=== PATIENT | male | born 2000 | race Caucasian/White ===

== ENCOUNTER 2019-02-20 10:00 | Emergency (ER) | payer OTHER, SELFPAY ==
[2019-02-20 10:03] VITALS: BP 121/75; PULSE 78; RESP 16; TEMP 36.5; O2SAT 98; BMI 20.4
--- NOTE | 2019-02-20 10:14 | ED.DCSUM_ITS ---
History of Present Illness Chief Complaint: Dental Informant: Patient Onset: Today Context: Sudden Onset Narrative: Patient is a 18-year-old male with history of Kvng-Danlos syndrome presenting with bleeding from a lip piercing. Patient recently had his top lip pierced when he woke up this morning noticed it was bleeding. He went to student health at [facility] and they were unable to remove it so he came to the emergency room to have it removed. He says it is uncomfortable but he denies any significant pain. He denies any history of any bleeding disorders. He denies any other injuries or complaints at this time. Past Medical History - Allergies and Home Meds Allergies/Adverse Reactions: Allergies No Known Allergies Allergy (Verified 02/20/19 10:02) Primary Care Physician: [facility],Out of [NON-STAFF] - Past Medical History: - - Kvng-Danlos syndrome Surgical History: noncontributory Review of Systems General: Denies: Chills, Fever, Sweats Eyes: Denies: Visual changes - bilaterally, Diplopia ENT: Denies: Rhinorrhea, Sore throat Cardiovascular: Denies: Chest pain, Palpitations Respiratory: Denies: Dyspnea, Cough, Dyspnea on exertion Gastrointestinal: Denies: Abdominal pain, Nausea, Vomiting Genitourinary: Denies: Dysuria, Hematuria, Frequency Musculoskeletal: Reports: Myalgias - Chronic, Arthralgias - Chronic, Back pain, Extremity Pain Skin: Reports: Wounds - Upper lip piercing with bleeding. Denies: Rash Neurological: Denies: Headache, Weakness, Numbness Physical Exam Vital Signs/Narrative: Vital Signs Temp Pulse Resp BP Pulse Ox 02/20/19 10:03 97.7 F L 78 16 121/75 H 98 Inital Vital Signs reviewed: Yes General: Well nourished, Well developed, No Acute Distress Head: Normocephalic, Atraumatic Eyes: Perrl, EOMI ENT: Moist mucous membranes, No rhinorrhea, - - Patient is a piercing through his philtrum that has dried blood around it. No cellulitic changes or purulent drainage associated. Neck: Supple, Nontender Cardiovascular: Regular rate, Regular rhythm, No murmurs Respiratory: No distress, CTA bilaterally Abdomen: Soft, Nontender Skin: Normal color, No rash, Trauma - Piercing through upper lip/philtrum with evidence of recent bleeding Neurological: Alert, Oriented x3 Psychological: Normal affect, Normal Mood Diagnostic/Tx/Re-eval - Medical Decision Making Patient has a lip ring that is bleeding. Is not appear infected. Lip ring is removed. See procedure note. Patient counseled on wound care. Patient is counseled on signs and symptoms requiring return to the emergency room. Patient verbalizes agreement and understand this plan. Patient discharged home in stable and improved condition. Procedures Procedure(s): Foreign body removal. Hemostats used to grasp the base of the lip ring. Second hemostats and used to twist off the top. Once the top was removed the base was pulled through the lip. Patient tolerated procedure well. No obvious complication. No blood loss. ED Disposition - Plan for ED Patient: Disposition: Home or Assisted Living Diagnosis: Open wound of lip Instructions: Wound Care Referrals: [facility],Out of [NON-STAFF] - Additional Instructions: Patient was removed today. Please try to keep the area clean. If desired you can apply bacitracin ointment to the outer piercing. Swish with mouthwash to help prevent infection on the inner lip.
[2019-02-20 10:46] VITALS: PULSE 82; RESP 17; O2SAT 98
== END 2019-02-20 10:52 | disposition home or self-care (01) ==
PROVIDERS: Emergency Provider Emergency Medicine
DX: S01.501A Unspecified open wound of lip, initial encounter (principal); W26.8XXA Contact with other sharp object(s), not elsewhere classified, initial encounter; Y93.9 Activity, unspecified; Y92.9 Unspecified place or not applicable
CPT/HCPCS: 99282

== ENCOUNTER 2019-05-20 12:54 | Emergency (ER) | payer OTHER, SELFPAY ==
[2019-05-20 12:55] VITALS: BP 117/75; PULSE 95; RESP 16; TEMP 36.6; O2SAT 98; BMI 19.0
--- NOTE | 2019-05-20 13:25 | CT_ITS ---
STUDY: CT BRAIN WITHOUT CONTRAST REASON FOR EXAM: Male, 18 years old. Headache, right eye vision changes intermittent x 1 week, legally blind in left eye. RADIATION DOSAGE (If Supplied By Facility): CTDIvol = ( 44.99 ) mGy, DLP = ( 762.36 ) mGycm TECHNIQUE: Transaxial CT imaging of the brain was performed without administration of intravenous contrast material. Individualized dose optimization techniques were used for this CT. COMPARISON: No relevant priors. FINDINGS: Normal soft tissue structures. Normal calvarium. Normal size ventricles and extra-axial spaces for the patient''s age. Normal white matter tracts of the cerebral hemispheres. Normal basal ganglia and thalami. Normal brainstem. Normal cerebellum. There is no intracranial hemorrhage. There are no findings of an acute ischemic infarction. Normal visualized paranasal sinuses. CT/Brain/Head without Contrast IMPRESSION: Normal unenhanced CT scan of the brain. Electronically Signed: Anirudh Madrid, at 13:56 EST , Service support ,
--- NOTE | 2019-05-20 13:33 | ED.DCSUM_ITS ---
- ER Visit Summary Date of Service: 05/20/19 Chief Complaint: Unable to see from right eye History of Present Illness: The patient is a 18 M who is a [employer] student from [place]. Patient has a history of Kvng-Danlos syndrome. He reports he has been able to see from his left eye since he was a child. States that over the past 5 days he has had 3 episodes where he was unable to see from his right eye. The first of these happened 5 days ago. Reports it started as a white spot slightly off center which expanded and overtook his entire vision. This lasted approximately 45 minutes. 2 days ago he had an episode where it seemed like a wand and light was swelling around in his vision that lasted approximately 2 hours. Today he reports that it seems like there has not been milk around the bottom of his vision has been waxing and waning for the past hour. Patient reports he had a similar episode approximately 2 months ago. Has not seen an awning frame maker for 2 years. He does not wear glasses or contacts. He denies any recent injury to his eye. He denies any eye pain. Does report that he has been experiencing headache with these episodes. States the headache seems to come on once his vision returns. It is a dull headache that currently is on the left side of his head. Is 8 out of 10 at worst and 2 out of 10 currently. It is decreased with ibuprofen and increased with reading. Physical Examination: Vitals: Stable. Afebrile. General: Well-nourished and well-developed. Head: Normocephalic atraumatic. Neck: Supple, no lymphadenopathy. No JVD. Nontender. Cardiovascular: Regular rate and rhythm. No murmurs. Respiratory: No respiratory distress. Clear to auscultation bilaterally. Abdominal: Soft, nontender, nondistended, normal bowel sounds. No guarding, rebound, or peritoneal signs. Back: Nontender. Extremities: Nontender, no edema. Skin: Normal color, no rash. Neurologic: Alert and oriented ?3. Cranial nerves II through XII are intact. Normal strength and sensation. Psych: Normal affect. Test Results: Visual acuity is 20/200 on the left and 20/20 on the right. It is 20/15 bilaterally. Emergency Department Course and Treatment: Patient was sent over and had a noncontrast CT of his head. While the results of this are pending I discussed the patient with Dr. Orr. Treatment Plan: Patient will be sent over to see Dr. Orr who reports that there is not a retina specialist in the [place] [facility] today. The results of the CT will be called over there. If this is abnormal patient will be return to the emergency department. Disposition: Transferred to the eye clinic in stable condition. Impression: 1. Transient visual loss right eye. 2. Cephalgia. 3. History of Ehler Danlos syndrome. This note was generated with [employer] dictation software. It may contain incorrect words, spelling, and punctuation that were not noted in review of the chart prior to signing ED Disposition - Plan for ED Patient: Instructions: How the Eye Works Referrals: Ronn Orr MD [STAFF PHYSICIAN] - As soon as possible
--- NOTE | 2019-05-20 13:42 | ED.RN ---
PT DISCHARGED PRIOR TO CT SCAN RESULTS. TAKEN TO [facility] BY [employer] TO SEE RETINA SPECIALIST. MD WILL CALL [facility] TO GIVE RESULTS OF CT SCAN.
== END 2019-05-20 13:44 | disposition home or self-care (01) ==
LOC: ED 13:31
PROVIDERS: Emergency Provider Emergency Medicine
DX: H53.121 Transient visual loss, right eye (principal); R51 Headache; H54.8 Legal blindness, as defined in USA; Q79.60 Ehlers-Danlos syndrome, unspecified; J45.909 Unspecified asthma, uncomplicated
CPT/HCPCS: 70450; 99283